=== PATIENT | male | born 1955 | race African-American/Black ===

== ENCOUNTER → 2020-09-02 | Outpatient (CLI) | payer MEDICARE, BC ==
[~2020-09-02] MED LIST: BACITRAYCIN PLU28 GM TP; KEFLEX CAP 500500 MG PO
== END ==
LOC: ECHO 08-19 13:00
DX: I10 Essential (primary) hypertension (principal); E78.00 Pure hypercholesterolemia, unspecified; E11.9 Type 2 diabetes mellitus without complications
CPT/HCPCS: ECHO; 93306

== ENCOUNTER → 2021-01-01 | Outpatient (CLI) | payer MEDICARE, BC | LOC: HEART 5 11:00 | DX: R07.9 Chest pain, unspecified (principal) ==

== ENCOUNTER → 2021-06-17 | Outpatient (CLI) | payer MEDICARE, BC | LOC: RAD 10:08 | DX: M25.551 Pain in right hip (principal); M16.11 Unilateral primary osteoarthritis, right hip | CPT/HCPCS: 73502 ==